=== PATIENT | male | born 1955 | race Caucasian/White ===

== ENCOUNTER 2020-01-10 19:40 | Emergency (ER) | payer BC, MEDICARE ==
[~2020-01-10] VITALS: Ht 177.8 cm; Wt 115.9 kg
[2020-01-10] MEDS ORDERED: LIDOCAINE 1% Multi-Dose 20 ML VIAL. INJ ONE (20:00)
[2020-01-10] MEDS ORDERED: cloNIDine HCL 0.1 MG TABLET PO ONE (20:00)
[2020-01-10 20:05] LABS: BASO # 0.1 x10^3/uL (0.0-0.2); BASO % 1 % (0-3); EOS # 0.3 x10^3/uL (0.0-0.7); EOS % 6 % (0-3); HEMATOCRIT 43.8 % (39.0-53.0); HEMOGLOBIN 14.9 g/dL (13.0-17.5); LYMPH # 1.4 x10^3/uL (1.0-4.8); LYMPH % 27 % (24-48); MEAN CORPUSCULAR HEMOGLOBIN 30 pg (25-35); MEAN CORPUSCULAR HGB CONC 34 g/dL (31-37); MEAN CORPUSCULAR VOLUME 89 fL (79-100); MONO # 0.5 x10^3/uL (0.0-1.1); MONO % 10 % (0-9); NEUT # 2.9 x10^3/uL (1.8-7.7); NEUT % 57 % (31-73); PLATELET COUNT 276 x10^3/uL (140-400); RED CELL DISTRIBUTION WIDTH 14.5 % (11.5-14.5); WHITE BLOOD COUNT 5.1 x10^3/uL (4.0-11.0)
[2020-01-10 20:11] LABS: CALCIUM 10.9 mg/dL (8.5-10.1); CREATININE 1.2 mg/dL (0.7-1.3); GFR 61.1; POTASSIUM 3.8 mmol/L (3.5-5.1)
--- NOTE | 2020-01-10 20:14 | RAD ---
3 views right finger dated 01/10/2020. No comparison available. CLINICAL INDICATION: Third and fourth finger laceration. Injury. Pain. FINDINGS: 3 views of left finger show focal soft tissue swelling over the tips of the third and fourth digits. There is associated soft tissue lacerations. There is a suspected small nondisplaced fracture through the tuft of the distal phalanx long finger. No additional fractures are seen. There is mild degenerative change of the interphalangeal joints throughout. Alignment anatomic. Moderate degenerative change of the first carpometacarpal joint and scaphotrapezial joint. IMPRESSION: 1. Soft tissue lacerations at the distal aspect of the third and fourth digits. 2. Suspected small nondisplaced fracture through the tuft of the third distal phalanx. Electronically signed by: Jesús Boss MD (01/10/2020 8:11 PM) [facility]ATA
[2020-01-10] MEDS ORDERED: LORazepam 0.5 MG TABLET PO ONE (20:15)
[2020-01-10 20:17] LABS: ALBUMIN 3.9 g/dL (3.4-5.0); ALBUMIN/GLOBULIN RATIO 1.1 (1.0-1.7); TOTAL BILIRUBIN 0.4 mg/dL (0.2-1.0); TOTAL PROTEIN 7.5 g/dL (6.4-8.2)
[2020-01-10] MEDS ORDERED: CEPH-264 PO (21:47)
[2020-01-10] MEDS ORDERED: TRAM50TA PO (21:47)
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
[2020-01-10] MEDS ORDERED: LISI10TA2 PO (21:51)
[2020-01-10] MEDS ORDERED: hydrALAZINE 20 MG/ML VIAL. IVP ONE (22:00)
[2020-01-10] MEDS ORDERED: BACITRACIN TOPICAL OINT PACKET. TP ONE (22:00)
[2020-01-10 22:17] VITALS: BP 151/97
[2020-01-10] MEDS ORDERED: DIPH,PERTUSS(ACELL),TET VAC/PF 0.5 ML SYRINGE. VAX IM ONE (22:30)
== END 2020-01-10 22:20 | disposition home or self-care (01) ==
LOC: ER 19:40
DX: S61.212A Laceration without foreign body of right middle finger without damage to nail, initial encounter (principal); S61.214A Laceration without foreign body of right ring finger without damage to nail, initial encounter; G89.29 Other chronic pain; Z98.890 Other specified postprocedural states; W26.8XXA Contact with other sharp object(s), not elsewhere classified, initial encounter; Y93.89 Activity, other specified; Y92.89 Other specified places as the place of occurrence of the external cause; Y99.8 Other external cause status
CPT/HCPCS: 12002; 36415; 73140; 80053; 85025; 90471; 90715; 96374; 99285; J0360; J3490